=== PATIENT | female | born 1955 | race Caucasian/White ===

== ENCOUNTER 2025-01-22 10:24 | Day surgery (SDC) | payer MEDICARE ==
[2025-01-19 12:06] LABS: BASOPHILS # (AUTO) 0.1 X10'3 (0-0.2); BASOPHILS % (AUTO) 1.1 % (0-1); EOSINOPHILS # (AUTO) 0.1 X10'3 (0-0.9); EOSINOPHILS % (AUTO) 0.9 % (0-6); HEMATOCRIT 43.1 % (35.0-45.0); HEMOGLOBIN 14.9 g/dl (12.0-16.0); LYMPHOCYTES # (AUTO) 1.4 X10'3 (1.1-4.8); LYMPHOCYTES % (AUTO) 24.7 % (21-51); MEAN CORPUSCULAR HEMOGLOBIN 33.3 PG (27.0-31.0); MEAN CORPUSCULAR HGB CONC 34.6 g/dL (33.0-36.5); MEAN CORPUSCULAR VOLUME 96.2 FL (78-98); MEAN PLATELET VOLUME 7.8 FL (7.4-10.4); MONOCYTES # (AUTO) 0.6 X10'3 (0-0.9); MONOCYTES % (AUTO) 9.8 % (2-12); NEUTROPHILS # (AUTO) 3.7 X10'3 (1.8-7.7); NEUTROPHILS % (AUTO) 63.5 % (42-75); PLATELET COUNT 221 X10'3 (140-440); RED BLOOD COUNT 4.48 X10'6 (4.20-5.60); RED CELL DISTRIBUTION WIDTH 13.5 % (11.5-14.5); WHITE BLOOD COUNT 5.8 X10'3 (4.5-11.0)
[2025-01-19 12:16] LABS: ALBUMIN 3.9 G/DL (3.4-5.0); ANION GAP 8 (8-16); BLOOD UREA NITROGEN 10 MG/DL (7-18); BUN/CREATININE RATIO 11.8 (10.0-20.0); CALCIUM 8.9 MG/DL (8.5-10.1); CHLORIDE 105 MMOL/L (99-107); CREATININE 0.85 MG/DL (0.40-0.90); GLUCOSE 96 MG/DL (70-104); POTASSIUM 4.3 MMOL/L (3.5-5.1); SODIUM 139 MMOL/L (135-145); TOTAL CARBON DIOXIDE 26.2 MMOL/L (24-32); eGFR 67 ML/MIN
[2025-01-19 12:17] LABS: APTT 28 SECONDS (22-32); INR 1.2 INR
[~2025-01-22] VITALS: Ht 170.2 cm; Wt 95.4 kg
[2025-01-22] VITALS (16 sets, daily range): BP systolic 117–140; BP diastolic 70–108; PULSE 73–105; RESP 12–23; TEMP 98.2; O2SAT 96–100
[~2025-01-22 10:24] MED LIST: ACYC-129 PO; ASCO1TAB13; CA C1TAB58; FISH OIL; GABA-330 PO; HYDR-3972 PO; IBUP-24 PO; MAGN400C PO; METH5TAB PO; SENN-28 PO; SUMA25TA35 PO; TIZA4CAP6 PO; VITA400T8 PO; VITAMIN; ZOLP5TAB8 PO; [UNRECOGNIZED DRUG - CODE]; [UNRECOGNIZED DRUG - OTHER]
[2025-01-22] MEDS ORDERED: PROG100C11 PO (11:12)
[2025-01-22] MEDS ORDERED: ZOLP-679 (11:12)
[2025-01-22] MEDS ORDERED: APIX5TAB3 PO (11:12)
[2025-01-22] MEDS ORDERED: PYRI50TA12 (11:13)
[2025-01-22] MEDS ORDERED: [UNRECOGNIZED DRUG - OTHER] IMPLANT (11:14)
[2025-01-22] MEDS ORDERED: TESTOSTERONE PELLET IMPLANT (11:15)
[2025-01-22] MEDS ORDERED: METO-384 PO (11:17)
[2025-01-22] MEDS: normal saline 1000ml 1,000 ML IV SCH (11:54)
[2025-01-22] MEDS: fentaNYL/PF 50MCG/1 ML 2ML syringe IV ONE (11:55)
[2025-01-22] MEDS: MIDAZolam 1mg/ml 10ml vial IV ONE (11:55)
--- NOTE | 2025-01-22 13:53 | PROCEDURE NOTE CC ---
Procedure Note Providers to CC CC: NASRIN RENTERIA MD ~ Description Planned Procedure Cardioversion Indications Symptomatic Atrial Fibrillation Post Operative Dx: Same Type of Anesthesia Moderate Sedation. Description It was confirmed that patient has been taking oral anticoagulation without interruption for at least 4 weeks. The appropriate time-out procedure was performed including proper identification of the patient, physician, procedure, documentation, and there were no safety issues identified. The patient participated actively in this. After sedation was achieved, the patient was placed in the supine position and hands free patches were placed on their chest in the AP-lateral position. 1 synchronized cardioversion was provided at 200 Joules with conversion to normal sinus rhythm. This was confirmed on EKG. Complication: None The patient tolerated the procedure well without complications. KAY RENTERIA MD January 22, 2025 13:53
--- NOTE | 2025-01-23 06:19 | ELECTROCARDIOGRAPH REPORT ---
[facility] Test Date: 2025-01-22 Test Time: 13:10:49 Pat Name: PERFECTO RM Department: SHORT STAY 1ST FLOOR Patient ID: [facility]-[id number] Room: Gender: F Stroke Program Coordinator: МАРИЯ : 1955 Requested By: KAY SHAH Order Number: [id number] Reading MD: Dr. Kevin Shah Measurements Intervals [place] Rate: 74 P: 148 NE: 178 QRS: -8 QRSD: 95 T: 138 QT: 431 QTc: 479 Interpretive Statements Sinus or ectopic atrial rhythm Probable left atrial enlargement Low voltage, precordial leads RSR' in V1 or V2, probably normal variant Nonspecific T abnormalities, lateral leads Electronically Signed On 01-23-2025 9:07:[address] Kevin Shah Please click the below link to view image of tracing.
== END 2025-01-22 14:00 | disposition home or self-care (01) ==
LOC: SSTAY O 10:24
PROVIDERS: ATTEND Student in an Organized Health Care Education/Training Program
DX: I48.91 Unspecified atrial fibrillation (principal); Z79.899 Other long term (current) drug therapy; Z98.890 Other specified postprocedural states
CPT/HCPCS: 36415; 80048; 85025; 85610; 85730; 92960; 93005; J2250; J3010; J7030

== ENCOUNTER 2025-08-23 10:38 | Inpatient (IN) | payer MEDICARE, BC ==
[2025-08-20 12:12] LABS: MEAN PLATELET VOLUME 8.1 FL (7.4-10.4); PRE OP HEMATOCRIT 43.1 % (35.0-45.0); PRE OP HEMOGLOBIN 14.9 g/dL (12.0-16.0); PRE OP PLATELET COUNT 213 X10'3 (140-440); PRE OP WHITE BLOOD COUNT 6.0 10'3 (4.8-10.8); RED CELL DISTRIBUTION WIDTH 13.6 % (11.5-14.5)
[2025-08-20 12:20] LABS: PRE OP INR 1.1 INR; PRE OP PARTIAL THROMB. TIME 29.0 SECONDS (22-32); PRE OP PROTIME 11.4 SECONDS (9.0-12.0)
--- NOTE | 2025-08-20 12:32 | RADIOLOGY REPORT ---
CLINICAL HISTORY: PREOP TECHNIQUE: Chest 2 views of the chest were obtained. COMPARISON: None FINDINGS: The heart size and pulmonary vasculature are normal. The lungs are clear. No pleural effusion is present. Surgical clips project at the left axilla. IMPRESSION: NO ACUTE CARDIOPULMONARY PROCESS.
[2025-08-20 13:14] LABS: CREATININE 0.81 MG/DL (0.40-0.90); PRE OP ALT 45 U/L (30-65); PRE OP ANION GAP 8 (8-16); PRE OP AST 46 U/L (10-37); PRE OP BILIRUB, TOTAL 0.5 MG/DL (0.0-1.0); PRE OP GLUCOSE 101 MG/DL (70-104); PRE OP POTASSIUM 3.7 MMOL/L (3.4-5.1); PRE OP SODIUM 139 MMOL/L (135-145); TOTAL CARBON DIOXIDE 28.5 MMOL/L (24-32); eGFR 71 ML/MIN
[2025-08-20 13:29] LABS: LEUKOCYTE ESTERASE ,URINE SMALL (Neg); NITRITES, URINE NEGATIVE (Neg); OCCULT BLOOD,URINE NEGATIVE (Neg)
[2025-08-20 13:51] LABS: UA COLLECTION TYPE CLN CATCH MIDSTREAM
[2025-08-20 13:53] LABS: MUCUS STRANDS FEW /LPF (Neg); SQUAMOUS EPITHELIAL CELL,UR MODERATE /LPF (FEW)
--- NOTE | 2025-08-20 17:19 | ELECTROCARDIOGRAPH REPORT ---
[facility] Test Date: 2025-08-20 Test Time: 12:28:10 Pat Name: PERFECTO RM Department: PRE/OP CARDIOLOGY [id number] Room: Gender: F Deep Fat Fry Cook: JUVENTINO : 1955 Requested By: KAY RENTERIA Order Number: [id number] Reading MD: Dr. KARY Valderrama Measurements Intervals [place] Rate: 102 P: 73 PA: 156 QRS: -1 QRSD: 88 T: 72 QT: 377 QTc: 492 Interpretive Statements Sinus tachycardia Paired ventricular premature complexes RSR' in V1 or V2, probably normal variant Electronically Signed On 08-20-2025 17:34:[address] KARY Valderrama Please click the below link to view image of tracing.
[~2025-08-23] VITALS: Ht 170.2 cm; Wt 98.3 kg
[2025-08-23] VITALS (23 sets, daily range): BP systolic 112–166; BP diastolic 54–91; PULSE 60–98; RESP 13–19; TEMP 97.2–98; O2SAT 93–100
[2025-08-23] MEDS: ceFAZolin 2gm/dext,iso 50mL 50 ML IV ONE (05:30)
[~2025-08-23 10:38] MED LIST changes: -ACYC-129 PO; +APIX5TAB3 PO; -ASCO1TAB13; -CA C1TAB58; -FISH OIL; -GABA-330 PO; -HYDR-3972 PO; -IBUP-24 PO; +LEVO75TA PO; +LIOT5TAB14 PO; -METH5TAB PO; +PROG100C11 PO; -SENN-28 PO; -SUMA25TA35 PO; +TESTOSTERONE PELLET IMPLANT; -TIZA4CAP6 PO; -VITA400T8 PO; -VITAMIN; +ZOLP-679 PO; -ZOLP5TAB8 PO; -[UNRECOGNIZED DRUG - CODE]; -[UNRECOGNIZED DRUG - OTHER]; +[UNRECOGNIZED DRUG - OTHER] IMPLANT; +ondansetron/PF 4mg/2ml inj IV PRN
[2025-08-23] MEDS: VANCOMYCIN/H2O 1.5g/300mL PB 300 ML IV ONE (12:24)
[2025-08-23] MEDS: ringers solution, lacted 1,000 ML IV SCH (12:25)
[2025-08-23] MEDS ORDERED: fentaNYL/PF 50MCG/1 ML 2ML syringe ONE (13:41)
[2025-08-23] MEDS ORDERED: midazolam 1 mg/ML 2ml injection ONE (13:41)
[2025-08-23] MEDS ORDERED: glycopyrrolate 0.2mg/ml inj ONE (14:16)
[2025-08-23] MEDS ORDERED: heparin 1,000unit/ml 10ml vial 10 ML ONE (14:21)
[2025-08-23] MEDS ORDERED: LIDOcaine 2% (20mg/ml) 5ml vial ONE (14:21)
[2025-08-23] MEDS ORDERED: propofol inj 20 ML IV ONE (14:21)
[2025-08-23] MEDS ORDERED: rocuronium 10mg/ml inj IV ONE (14:21)
[2025-08-23] MEDS ORDERED: dexamethasone sod phosphate 4mg/ml inj. ONE (14:21)
[2025-08-23] MEDS ORDERED: ALPRAZolam 0.25mg tablet PO PRN (14:45)
[2025-08-23] MEDS ORDERED: labetalol 20mg/4ml (5mg/ml) syringe IV PRN (14:45)
[2025-08-23] MEDS ORDERED: potassium CL 10mEq/100ml bag 100 ML IV PRN (14:45)
[2025-08-23] MEDS ORDERED: potassium Cl 40MEQ/270ML bag 250 ML IV PRN (14:45)
[2025-08-23] MEDS ORDERED: ondansetron/PF 4mg/2ml inj IV PRN (14:45)
[2025-08-23] MEDS ORDERED: potassium Cl 40MEQ/1/2NS 520ml 520 ML IV PRN (14:45)
[2025-08-23] MEDS ORDERED: docusate sod 100mg capsule PO PRN (14:45)
[2025-08-23] MEDS ORDERED: magnesium sulf-water 2g/50mL 50 ML IV PRN (14:45)
[2025-08-23] MEDS ORDERED: pantoprazole 40mg Tablet.DR PO PRN (14:45)
[2025-08-23] MEDS ORDERED: potassium Cl 20 mEq SR tablet PO PRN (14:45)
[2025-08-23] MEDS ORDERED: magnesium sulf-water 4G/100mL 100 ML IV PRN (14:45)
[2025-08-23] MEDS ORDERED: potassium Cl 20mEq/100mL bag 100 ML IV PRN (14:45)
[2025-08-23] MEDS ORDERED: hydrALAZINE 20mg/ml inj. IV PRN (14:45)
[2025-08-23] MEDS ORDERED: ondansetron/PF 4mg/2ml inj ONE (14:47)
--- NOTE | 2025-08-23 14:59 | ELECTROCARDIOGRAPH REPORT ---
[facility] Test Date: 2025-08-23 Test Time: 14:58:08 Pat Name: PERFECTO RM Department: [facility] IN Room: [place] [address] Gender: F Assistant Golf Coach: МАРИЯ : 1955 Requested By: KAY RENTERIA Order Number: [id number] Reading MD: Dr. KARY Valderrama Measurements Intervals [place] Rate: 89 P: 64 LA: 166 QRS: -4 QRSD: 91 T: 56 QT: 392 QTc: 477 Interpretive Statements Sinus rhythm Ventricular trigeminy Low voltage, extremity leads Electronically Signed On 08-23-2025 16:54:[address] KARY Valderrama Please click the below link to view image of tracing.
--- NOTE | 2025-08-23 15:18 | OPERATIVE REPORT ---
Operative Report Providers to CC CC: NASRIN SHAH MD ~ Date of Procedure: Aug 23, 2025 Pre-Operative Diagnosis: Atrial Fibrillation with high bleeding risk Post-Operative Diagnosis SAME as PRE-Op Procedure Performed 1. Transseptal Puncture via JONELLE guidance 2. Left Atrial Appendogram 3. Left Atrial Appendage closure with 31mm Watchman FLX Pro Device 4. Ultrasound guided access, right Femoral Vein Surgeon: Kay Shah MD Oncology Research Rn n/a Anesthesiologist: Burke Washburn Type of Anesthesia: General Findings: Left Atrial appendage amenable to percutaneous closure. Complications None Prosthetics\\Implants used: 31mm Watchman Flx Pro Estimated Blood Loss: Minimal Specimen Removed: None Description of Procedure: The patient was brought to the laborer hide house in a fasting state. They underwent General anesthesia. Ultrasound was used to guide access to the right femoral vein where two lilliam-cross Perclose devices were placed and upsized to an 8Fr sheath. Heparin was given to maintain an ACT over 250 seconds. An 0.035" wire was advanced into the SVC. The 8Fr sheath was then removed and the 8.5Fr VersaCross Transseptal sheath was advanced into the SVC. The RF wire was then advanced to the tip of the sheath/dilator. Using JONELLE guidance, appropriate position of the tip of the sheath was determined and using an energized wire tip, advanced into the left atrium. The sheath and dilator were then advanced over the wire into the left atrium. Over the wire, the Versacross sheath was removed and exchanged for the Watchman Sheath. The wire and dilator were then removed and exchanged for a 5Fr pigtail catheter which was placed into the left atrial appendage and an appendogram performed in the SHIELDS-Caudal position. There, ACT was confirmed to be therapeutic. The Watchman sheath was then advanced into the left atrial appendage over the pigtail catheter. Once appropriate position was determined, the pigtail was removed, the 31mm Watchman FLX device and delivery system were advanced into the tip of the sheath. The delivery system was advanced until an appropriate FLX ball was formed. The guide was then retracted and the Watchman device was unsheathed will full deployment in the appendage. Next, PASS criteria was performed confirming adequate positioning and anchoring(using a tug-test), sizing showing adequate compression, and no significant leak around the device. Another Appendogram was performed confirming placement. The device was then released from the delivery system. The guide and delivery system were removed and the perclose tied as well as the [id number] suture, ensuring adequate hemostasis. Mean LA Presssure: 12mmHg Contrast: 25cc ACT: 271s Device Compression: 19-22% RESULTS: 1. Successful Left-Atrial Appendage closure with a 31mm Watchman FLX Pro device 2. Right Femoral Vein access, closed with Perclose x 2 and Cogjqv-ed-Gmfnz suture 3. Resume Eliquis 5mg BID x 45days with repeat imaging at that time. If sealed without evidence of device related thrombosis, can stop OAC and start ASA 81mg QD indefinitely, plavix 75mg QD x 6 months. They will be watched in the recovery area until stable, then transferred to the telemetry at that time. KAY SHAH MD Aug 23, 2025 15:18
[2025-08-23] MEDS: HALLS - SOOTHE MENTHOL 1.8 MG cough drop LOZENGE MM PRN (16:16)
[2025-08-23] MEDS: sod chloride 0.9% 10ml flush syringe IV SCH (16:30)
--- NOTE | 2025-08-23 17:35 | CARDIOLOGY REPORT ---
APPROVED REPORT EXAM: Focused, limited intraprocedural transesophageal 2D, spectral and color flow Doppler echocardiogram during WATCHMAN deployment. Patient Location: CARDIAC OFFICE AUDITOR Blood Pressure: 101 / 63 mmHg Heart Rate: 80-110 bpm Rhythm: ATRIAL FIBRILLATION Indications PRE IMAGING AND WATCHMAN FLX VERONIKA CLOSURE DEVICE IMPLANTATION CHRONIC ATRIAL FIBRILLATION ABLATION 1 MO AGO 31 mm WATCHMAN FLX VERONIKA CLOSURE DEVICE JONELLE PROBE PASSED BY: Gael SABA MD Tire Classifier: Ruperto Shah MD / Interventionalist: Ruperto Shah MD / Device rep: [facility] echo: NA LEFT VENTRICLE Normal LV size and wall thickness. Overall systolic function is normal. LVEF is 65%. RIGHT VENTRICLE RV is normal size and function. ATRIA LA appears severely dilated. Windsock shaped appendage without thrombus detected. Left upper pulmonary vein identified. Intact interatrial septum. Width / length averages are: 0degr 19 x 24 mm; 45degr 18 x 31 mm; 90degr 24 x 29 mm; 135degr 23 x 24 mm. Loop 18: Septal tenting visualized with RF atrial septal puncture performed. Loop 24: Wire in LA. Pigtail advanced to tip of appendage. LA pressure is measured at: 12 mmHG. Appendagram performed. Loop 30: Flex ball deployed. 31mm Watchman FLX device, PASS criteria attempted, unsuccessfully. Device recaptured and redeployed. "TUG" test performed. Loop 42: PASS reassessed. Optimal compression obtained - shoulder to shoulder measurement is: 24.25 mm. Loop 55: Device released, sheath pulled back across interatrial septum. Patent interatrial septum with small residual left to right shunt (s/p transseptal puncture) visualized with spectral and color Doppler. Poor color and spectral Doppler angle. Successfully occluded left atrial appendage with Watchman device well positioned without thrombus. No residual flow around device detected by color Doppler. No pericardial effusion post-implant. PERICARDIUM Normal pericardium. No effusion. CONCLUSION Normal LV size and wall thickness. Overall systolic function is normal. LVEF is 65%. RV is normal size and function. LA appears severely dilated. Windsock shaped appendage without thrombus detected. Left upper pulmonary vein identified. Intact interatrial septum. Width / length averages are: 0degr 19 x 24 mm; 45degr 18 x 31 mm; 90degr 24 x 29 mm; 135degr 23 x 24 mm. Loop 18: Septal tenting visualized with RF atrial septal puncture performed. Loop 24: Wire in LA. Pigtail advanced to tip of appendage. LA pressure is measured at: 12 mmHG. Appendagram performed. Loop 30: Flex ball deployed. 31mm Watchman FLX device, PASS criteria attempted, unsuccessfully. Device recaptured and redeployed. "TUG" test performed. Loop 42: PASS reassessed. Optimal compression obtained - shoulder to shoulder measurement is: 24.25 mm. Loop 55: Device released, sheath pulled back across interatrial septum. Patent interatrial septum with small residual left to right shunt (s/p transseptal puncture) visualized with spectral and color Doppler. Poor color and spectral Doppler angle. Successfully occluded left atrial appendage with Watchman device well positioned without thrombus. No residual flow around device detected by color Doppler. No pericardial effusion post-implant. Normal pericardium. No effusion. Conclusion Normal LV size and wall thickness. Overall systolic function is normal. LVEF is 65%. RV is normal size and function. LA appears severely dilated. Windsock shaped appendage without thrombus detected. Left upper pulmonary vein identified. Intact interatrial septum. Width / length averages are: 0degr 19 x 24 mm; 45degr 18 x 31 mm; 90degr 24 x 29 mm; 135degr 23 x 24 mm. Loop 18: Septal tenting visualized with RF atrial septal puncture performed. Loop 24: Wire in LA. Pigtail advanced to tip of appendage. LA pressure is measured at: 12 mmHG. Appendagram performed. Loop 30: Flex ball deployed. 31mm Watchman FLX device, PASS criteria attempted, unsuccessfully. Device recaptured and redeployed. "TUG" test performed. Loop 42: PASS reassessed. Optimal compression obtained - shoulder to shoulder measurement is: 24.25 mm. Loop 55: Device released, sheath pulled back across interatrial septum. Patent interatrial septum with small residual left to right shunt (s/p transseptal puncture) visualized with spectral and color Doppler. Poor color and spectral Doppler angle. Successfully occluded left atrial appendage with Watchman device well positioned without thrombus. No residual flow around device detected by color Doppler. No pericardial effusion post-implant. Normal pericardium. No effusion.
[2025-08-23] MEDS: HYDROcodone/acetaminophen 5mg/325mg tablet PO PRN (17:48)
[2025-08-23] MEDS: normal saline 1000ml 1,000 ML IV SCH (18:00)
[2025-08-23] MEDS: ceFAZolin 1GM/D5W- ADD-VANTAGE 50 ML IV SCH (19:27)
[2025-08-23] MEDS: vancomycin/NS 1 GM ADD-VANTAGE 250 ML IV SCH (20:13)
[2025-08-24 02:00] VITALS: BP 121/55; PULSE 73; RESP 16; TEMP 97; O2SAT 93
[2025-08-24 06:00] VITALS: BP 119/71; PULSE 79; RESP 17; TEMP 97.7; O2SAT 97
[2025-08-24 06:49] LABS: MEAN PLATELET VOLUME 8.5 FL (7.4-10.4); RED CELL DISTRIBUTION WIDTH 12.9 % (11.5-14.5)
[2025-08-24 07:02] LABS: INR 1.2 INR
[2025-08-24 07:14] LABS: CREATININE 0.75 MG/DL (0.40-0.90); PRO BRAIN NATRIURETIC PEPTIDE 567 PG/ML (0-125); TOTAL CARBON DIOXIDE 28.6 MMOL/L (24-32); eCRCL 71 ML/MIN; eGFR 77 ML/MIN
--- NOTE | 2025-08-24 07:26 | ELECTROCARDIOGRAPH REPORT ---
[facility] Test Date: 2025-08-24 Test Time: 07:22:16 Pat Name: PERFECTO RM Department: [facility] 3S Room: [place] [address] A Gender: F Etched Circuit Processor: МАРИЯ : 1955 Requested By: KAY RENTERIA Order Number: [id number] Reading MD: Dr. KARY Valderrama Measurements Intervals [place] Rate: 74 P: 51 [place]: 172 QRS: -12 QRSD: 94 T: 65 QT: 406 QTc: 451 Interpretive Statements Sinus rhythm Ventricular premature complex Electronically Signed On 08-24-2025 16:50:[address] KARY Valderrama Please click the below link to view image of tracing.
[2025-08-24 08:00] VITALS: RESP 16; O2SAT 96
--- NOTE | 2025-08-24 09:48 | RADIOLOGY REPORT ---
CHEST RADIOGRAPH Indication: s/p Watchman Technique: Single frontal view of the chest was obtained Comparison: DI CHEST,TWO VIEWS on DOS: 08/20/25 FINDINGS: Lines and Tubes: Left axillary clips. Lungs: No focal consolidation. Pleura: No effusion. No pneumothorax. Cardiomediastinal contours: The cardiac silhouette is mildly prominent. Watchman device noted. Bones: No acute osseous abnormality. IMPRESSION: 1. No acute pulmonary disease. 2. Mild cardiomegaly.
[2025-08-24 11:00] VITALS: BP 148/65; PULSE 82; RESP 16; TEMP 97.3; O2SAT 98
[2025-08-24 12:00] VITALS: RESP 16
[2025-08-24] MEDS ORDERED: LEVO88TA2 PO (13:49)
--- NOTE | 2025-08-24 15:29 | DISCHARGE SUMMARY ---
Discharge Summary Providers to CC ~ Discharge Summary Admission Diagnosis: Atrial Fibrillation with high bleeding risk Hospital Course DATE OF ADMISSION: 08/23/25 DATE OF DISCHARGE: 08/24/25 Discharge Diagnosis\Comment: Atrial fibrillation with high-risk for bleeding status post left atrial darin endage occlusion with Watchman Operations\Procedures: 1. Transseptal Puncture via JONELLE guidance 2. Left Atrial Appendogram 3. Left Atrial Appendage closure with 31mm Watchman FLX Pro Device 4. Ultrasound guided access, right Femoral Vein Consultants: No consultants Complications: No complications Condition on DC: Stable Continued Medications: Apixaban (Eliquis) 5 Mg Tablet 1 TAB PO DAILY VERIFIED WITH PATIENT, DOES ONLY TAKE ONCE A DAY IN MORNING PER DR. SHAH [Estradiol Pellet] () 6 MG IMPLANT Q90D Levothyroxine Sodium (Levo-T) 75 Mcg Tablet 70 MCG PO DAILY for 30 Days, #30 TAB 0 Refills VERIFIED DOSE, PATIENT GETS COMPOUNDED DRUG Levothyroxine Sodium (Synthroid) 88 Mcg Tablet 70 MCG PO DAILY, TAB Liothyronine Sodium (Cytomel) 5 Mcg Tablet 14 MCG PO DAILY for 30 Days, #30 TAB 0 Refills VERIFIED DOSE, PATIENT GETS DRUG COMPOUNDED Magnesium Oxide (Magnesium) 400 Mg Magnesium Capsule 400 MG PO HS Progesterone,Micronized (Progesterone) 100 Mg Capsule 3 CAP PO HS [Testosterone Pellet] () 100 MG IMPLANT Q90D Zolpidem Tartrate (Ambien) 10 Mg Tablet 1 TAB PO HS PRN for SLEEP Discharge Summary: Patient with past medical history significant for atrial fibrillation with high- risk for bleeding presented for planned left atrial appendage occlusion with Watchman. Underwent placement of a 31 mm watchman FL X pro device with Dr. Domingo Shah. Please see his dictation for further details on the procedure. He tolerated the procedure well. Was monitored overnight in the telemetry unit. Has remained hemodynamically stable. Has been up and ambulatory with no complaints of chest pain, pressure, shortness for breath. No dizziness, lightheadedness or syncope. Postoperative testing was reviewed by Dr. Domingo Shah and she was deemed stable for discharge home. Physical exam prior to discharge: General: Awake, alert, oriented. No apparent distress Neck: Supple. Normal range of motion. No JVD Respiratory: Lungs are clear to auscultation bilaterally. No respiratory distress. Chest: Normal shape and size. No accessory muscle use. Cardiovascular: Regular rate and rhythm. S1-S2. No murmur, gallop, rub. Gastrointestinal: Abdomen is soft. Nontender to palpation. Bowel sounds present. Extremities: No lower extremity edema, cyanosis or clubbing. Femoral cath site with dressing clean dry and intact. There is a very small dot of blood on the dressing. Otherwise, no hematoma or swelling. No ecchymosis. Neurologic: Alert and oriented x4. Nonfocal Psychiatric: Normal mood and affect. Skin: Normal color. Warm and dry. Plan: Patient is being discharged home in stable condition. We will follow up as scheduled. Activity restrictions reviewed. We will take oral anticoagulation as prescribed. *Problems/Diagnosis: (1) Atrial fibrillation Total Time Spent on D/C: Up to 30 Minutes Counseling Services Smoking & Tobacco Cessation: N/A NILA BISWAS NP Aug 24, 2025 15:29
--- NOTE | 2025-08-24 17:59 | CARDIOLOGY REPORT ---
APPROVED REPORT EXAM: Limited 2D, Doppler, and color-flow Echocardiogram. Patient Location: 302 Blood Pressure: 115/67 mmHg Heart Rate: 76 bpm Rhythm: NSR Indications ONE DAY WATCHMAN IMPLANT FOLLOW-UP 31 mm Watchman FLX Closure Device Processing Manager is Ruperto Shah MD Previous echo 08/23/25 [facility] EF 65; Intact interatrial septum with small left to right shunt by color and spectral flow Doppler s/p transeptal puncture. No PE Tricuspid Valve TR P. Velocity 314 cm/s RAP ESTIMATE 10 mmHg TR Peak Gr. 39 mmHg RVSP 49 mmHg LEFT VENTRICLE LV appears normal in size and thickness. Overall systolic function appears normal. LVEF is 65%. RIGHT VENTRICLE RV appears normal in size and contractility. RVSP is estimated at 49 mmHG. ATRIA LA appears moderately dilated. Intact interatrial septum with (small) L to R shunt s/p transseptal puncture by color and spectral Doppler. TRICUSPID VALVE The tricuspid valve is normal in structure. Mild tricuspid regurgitation. PERICARDIUM There is no pericardial effusion. Other Information Study Quality: Adequate Conclusion LV appears normal in size and thickness. Overall systolic function appears normal. LVEF is 65%. RV appears normal in size and contractility. RVSP is estimated at 49 mmHG. LA appears moderately dilated. Intact interatrial septum with (small) L to R shunt s/p transseptal puncture by color and spectral Doppler. The tricuspid valve is normal in structure. Mild tricuspid regurgitation. There is no pericardial effusion.
== END 2025-08-24 15:23 | disposition home or self-care (01) | DRG 274 ==
LOC: PAS IN 10:38 → PCU 3S 16:27
PROVIDERS: ADMIT Student in an Organized Health Care Education/Training Program; ATTEND Student in an Organized Health Care Education/Training Program
PROC: B24BZZ4 Ultrasonography of Heart with Aorta, Transesophageal (ICD-10-PCS; 2025-08-23)
PROC: 02L73DK Occlusion of Left Atrial Appendage with Intraluminal Device, Percutaneous Approach (ICD-10-PCS; principal; 2025-08-23 13:54)
DX: I48.91 Unspecified atrial fibrillation (principal); Z00.6 Encounter for examination for normal comparison and control in clinical research program; Z79.01 Long term (current) use of anticoagulants
CPT/HCPCS: 33340; 36415; 71045; 71046; 76937; 80053; 81001; 82948; 83735; 83880; 84443; 85025; 85347; 85610; 85730; 86885; 86900; 86901; 86920; 87081; 87088; 93005; 93308; 93312; 93325; A4615; A4618; A6258; A6449; C1760; C1889; C1894; G0378; J0690; J1100; J1644; J2003; J2250; J2405; J2704; J3010; J3373; J3375; J3490; J7030; J7040; J7120; Q9967